=== PATIENT | female | born 1995 | race American Indian/Alaskan Native ===

== ENCOUNTER 2021-05-16 15:04 | Emergency (ER) | payer MEDICAID ==
[2021-05-16] MEDS ORDERED: diphenhydrAMINE 50 MG/ML VIAL IV ONE (15:18)
[2021-05-16] MEDS ORDERED: SODIUM CHLORIDE 0.9% 1000 ML 1,000 ML IV ONE (15:18)
[2021-05-16] MEDS ORDERED: METOCLOPRAMIDE 10 MG/2 ML INJ IV ONE (15:18)
--- NOTE | 2021-05-16 15:19 | Event Note ---
ED Screening Note Date of service: 05/16/21 Time: 15:19 ED Screening Note: 26-year-old female presents emergency department chief complaint of severe headache. Patient appears to be in distress and not speaking to staff. This initial assessment/diagnostic orders/clinical plan/treatment(s) is/are subject to change based on patients health status, clinical progression and re- assessment by fellow clinical providers in the ED. Further treatment and workup at subsequent clinical providers discretion. Patient/guardian urged not to elope from the ED as their condition may be serious if not clinically assessed and managed. Initial orders include: CBC, CMP, hCG, CT brain without contrast, IV fluids, Reglan, Benadryl
[2021-05-16 16:33] LABS: Basophils % (Auto) 0.3 % (0.0-1.8); Eosinophils # (Auto) 0.1 K/mm3 (0.0-0.4); Hematocrit 41.9 % (30.3-42.9); Hemoglobin 13.5 gm/dl (10.1-14.3); Lymphocytes # (Auto) 1.6 K/mm3 (1.2-5.4); Lymphocytes % (Auto) 12.1 % (13.4-35.0); Mean Corpuscular HGB Conc 32 % (30-34); Mean Corpuscular Volume 86 fl (79-97); Monocytes # (Auto) 0.6 K/mm3 (0.0-0.8); Monocytes % (Auto) 4.6 % (0.0-7.3); Platelet Count 203 K/mm3 (140-440); Red Blood Count 4.85 M/mm3 (3.65-5.03); Red Cell Distribution Width 13.5 % (13.2-15.2)
[2021-05-16] MEDS ORDERED: MORPHINE 4 MG/1 ML INJ IV ONE (16:34)
--- NOTE | 2021-05-16 16:36 | Emergency Department Report ---
HPI - General Chief Complaint: Headache Time Seen by Provider: 05/16/21 16:15 - HPI HPI: 26-year-old -[place] female presents to the emergency department with complaint of a generalized headache that she says is a migraine that started about 1 PM this afternoon, about 3.5 hours ago. Patient says that she has been diagnosed with migraines in the past but is not on any maintenance medications and did not take anything for her symptoms prior to presentation. It is generalized, squeezing, and 9 out of 10 in intensity. No known aggravating or alleviating factors. She denies any fever, vision change, vomiting, slurred speech, numbness or paresthesias, but does admit to some photophobia and nausea. No recent travel or sick contacts at home. ED Past Medical Hx - Past Medical History Previous Medical History?: Yes Additional medical history: Occasional migraines - Surgical History Past Surgical History?: No - Social History Smoking Status: Never Smoker Substance Use Type: None - Medications Home Medications: Home Medications Medication Instructions Recorded Confirmed Last Taken Type Vit No.130/Iron/Folic 1 each PO QDAY #30 tablet 05/07/16 Unknown Rx [ Tablet] Butalb/Acetaminophen/Caffeine 1 cap PO Q8HR PRN #10 cap 05/16/21 Unknown Rx [Fioricet 50-300-40 mg CAP] ED Review of Systems ROS: Stated complaint: HEADACHE,DIZZY Other details as noted in HPI Comment: All other systems reviewed and negative Constitutional: denies: chills, fever Eyes: other (Photophobia). denies: eye pain, vision change ENT: denies: ear pain, throat pain Respiratory: denies: cough, shortness of breath Cardiovascular: denies: chest pain, palpitations Gastrointestinal: nausea. denies: abdominal pain, vomiting Genitourinary: denies: dysuria, discharge Musculoskeletal: denies: back pain, arthralgia Skin: denies: rash, lesions Neurological: headache. denies: weakness, numbness, paresthesias Physical Exam - Physical Exam Vital Signs: Vital Signs 05/16/21 15:09 Temperature 97.5 F L Pulse Rate 94 H Respiratory 22 Rate Blood Pressure 129/82 O2 Sat by Pulse 100 Oximetry Physical Exam: GENERAL: The patient is well-developed well-nourished. HENT: Normocephalic. Atraumatic. Patient has moist mucous membranes. EYES: Extraocular motions are intact. No nystagmus. NECK: Supple. Trachea is midline. CHEST/LUNGS: Clear to auscultation. There is no respiratory distress noted. HEART/CARDIOVASCULAR: Regular. There is no tachycardia. There is no murmur. ABDOMEN: Abdomen is soft, nontender. Patient has normal bowel sounds. SKIN: Skin is warm and dry. NEURO: The patient is awake, alert, and oriented. The patient is cooperative. The patient has no focal neurologic deficits. Normal speech. Cranial nerves II through XII grossly intact. No facial asymmetry. MUSCULOSKELETAL: There is no tenderness or deformity. There is no limitation range of motion. ED Course Vital Signs 05/16/21 15:09 Temperature 97.5 F L Pulse Rate 94 H Respiratory 22 Rate Blood Pressure 129/82 O2 Sat by Pulse 100 Oximetry ED Medical Decision Making - Lab Data Result diagrams: 05/16/21 15:53 05/16/21 15:53 Labs 05/16/21 05/16/21 05/16/21 15:53 15:53 15:53 WBC 13.1 H RBC 4.85 Hgb 13.5 Hct 41.9 MCV 86 MCH 28 MCHC 32 RDW 13.5 Plt Count 203 Lymph % (Auto) 12.1 L [place] % (Auto) 4.6 Eos % (Auto) 1.0 Baso % (Auto) 0.3 Lymph # (Auto) 1.6 [place] # (Auto) 0.6 Eos # (Auto) 0.1 Baso # (Auto) 0.0 Seg Neutrophils % 82.0 H Seg Neutrophils # 10.8 H Sodium 138 Potassium 4.6 Chloride 103.1 Carbon Dioxide 22 Anion Gap 18 BUN 10 Creatinine 0.8 Estimated GFR > 60 BUN/Creatinine Ratio 13 Glucose 136 H Calcium 9.9 Total Bilirubin 0.60 AST 12 ALT 12 Alkaline Phosphatase 72 Total Protein 8.0 Albumin 4.4 Albumin/Globulin Ratio 1.2 HCG, Qual Negative - Radiology Data Radiology results: report reviewed CT head/brain wo con INDICATION: severe headache. TECHNIQUE: Routine CT head. All CT scans at this location are performed using CT dose reduction for ALARA by means of automated exposure control. COMPARISON: None. FINDINGS: Intracranial: Casanova-white matter differentiation is maintained. No intracranial hemorrhage. No extra axial collection. No hydrocephalus. No herniation. Sinuses: Nonpneumatized right maxillary sinus with bowing of the maxillary sinus naylor. Otherwise, paranasal sinuses and mastoid air cells are essentially clear. Orbits: Globes are intact. Calvarium: No acute fracture. IMPRESSION: 1. No acute intracranial abnormality. 2. Right maxillary sinus atelectasis. - Medical Decision Making This patient presents with a 2-day history of a generalized headache that she says is a migraine. On examination she does not have any focal, motor or sensory deficits and her cranial nerves are intact. CT head does not show any hemorrhage, large vessel occlusion, hydrocephalus, or any other acute process. Vital signs reassuring throughout her ED course including being afebrile. No n sebastián pain or rigidity. Patient was given some IV fluid resuscitation, antiemetics, analgesia, and a dose of Solu-Medrol. She was reevaluated multiple times over multiple hours and is feeling greatly improved. Patient was discharged home with a prescription for Fioricet and outpatient follow-up with a local neurologist. She will return to the emergency department with any worsening of her symptoms or with any acute distress. The patient was seen ambulatory in the emergency department and both appears and feels stable. Critical Care Time: No Critical care attestation.: If time is entered above; I have spent that time in minutes in the direct care of this critically ill patient, excluding procedure time. ED Disposition Clinical Impression: Migraine headache Qualifiers: Migraine type: unspecified Status migrainosus presence: without status mi grainosus Intractability: not intractable Qualified Code(s): G43.909 - Migraine, unspecified, not intractable, without status migrainosus Disposition: 01 HOME / SELF CARE / HOMELESS Is pt being admited?: No Condition: Stable Instructions: Migraine Headache Additional Instructions: Please follow-up with your primary care physician in the next few days. I am giving you a referral for a local neurologist, Dr. Kemp, to follow-up regarding your history of migraines. You have been prescribed a medication that is sedating and therefore should not be taken prior to driving, working, and responsible for children and in no way should be mixed with alcohol of any quantity. Return to the emergency department with any worsening of your symptoms, new or concerning symptoms not addressed during this current emergency department visit, or with any acute distress. Prescriptions: Butalb/Acetaminophen/Caffeine [Fioricet 50-300-40 mg CAP] 1 cap PO Q8HR PRN #10 cap PRN Reason: Headache Referrals: KEARA KEMP MD [Referring] - 3-5 Days
--- NOTE | 2021-05-16 16:46 | Cat Scan Report ---
CT head/brain wo con INDICATION: severe headache. TECHNIQUE: Routine CT head. All CT scans at this location are performed using CT dose reduction for A GUICHO by means of automated exposure control. COMPARISON: None. FINDINGS: Intracranial: Casanova-white matter differentiation is maintained. No intracranial hemorrhage. No extra a xial collection. No hydrocephalus. No herniation. Sinuses: Nonpneumatized right maxillary sinus with bowing of the maxillary sinus naylor. Otherwise, pa ranasal sinuses and mastoid air cells are essentially clear. Orbits: Globes are intact. Calvarium: No acute fracture. IMPRESSION: 1. No acute intracranial abnormality. 2. Right maxillary sinus atelectasis. Signer Name: Farhan Epps MD Signed: 05/16/2021 4:40 PM Workstation Name: [id number]
[2021-05-16] MEDS ORDERED: methylPREDNISolone Sod Succinate 125 MG/2 ML INJ IV ONE (16:48)
[2021-05-16 16:52] LABS: Alanine Aminotransferase 12 units/L (7-56); Albumin 4.4 g/dL (3.9-5); BUN/Creatinine Ratio 13; Blood Urea Nitrogen 10 mg/dL (7-17); Calcium 9.9 mg/dL (8.4-10.2); Hemolysis Index 4
[2021-05-16 17:49] VITALS: BP 103/66
== END 2021-05-16 19:13 | disposition home or self-care (01) ==
LOC: ED 15:04
DX: G43.909 Migraine, unspecified, not intractable, without status migrainosus (principal)
CPT/HCPCS: 36415; 70450; 80053; 84703; 85025; 96361; 96374; 96375; 99284; J1200; J2270; J2765; J2930; J7030